=== PATIENT | male | born 1945 | race Caucasian/White ===

== ENCOUNTER → 2016-04-24 | Outpatient (CLI) | payer MEDICARE, BC ==
[~2016-04-24] MED LIST: ABILIFY5 MG PO; ALLERGY RELIEF10 M1 PO; CLONAZEPAM0.5 MG PO; COMPAZINE RC; COMPAZINE10 MG PO; CYMBALTA; FINASTERIDE5 MG PO; FLOMAX0.4 MG PO; GABAPENTIN400 M1 PO; IBUPROFEN200 MG PO; IMITREX NA20 MG/SPRA NS; IMITREX25 MG PO; LAMICTAL; LAMOTRIGINE200 MG PO; LIDODERM 5% PATC1 EA TP; LIDODERM PATCH TP; LUMIGAN 3 ML3 ML OP; LUMIGAN EYE GTTS OU; MIDRIN; MIRTAZAPINE45 M1 PO; MULTIPLE VITAMI1 CAP PO; PERCOCET 325 MG1 TA2 PO; PROSCAR; REMERON45 MG PO; SKELAXIN800 MG PO; VITAMIN D1000 IU PO; VOLTAREN GEL1% TP; ZOCOR 40MG40 MG PO; ZOCOR40 MG PO
== END ==
LOC: COL.RAD 08:07
DX: I77.819 Aortic ectasia, unspecified site (principal); I70.0 Atherosclerosis of aorta; Z87.891 Personal history of nicotine dependence; Z82.49 Family history of ischemic heart disease and other diseases of the circulatory system

== ENCOUNTER → 2018-02-11 | Outpatient (CLI) | payer MEDICARE, BC ==
[~2018-02-11] MED LIST changes: +ASPIRIN 81M81 MG/TA2 PO; +BREO IH; +DULCOLAX TAB5 MG PO; +EFFEXOR-XR150 MG PO; +FENTANYL 12MCG TD; +FLOMAX 0.40.4 MG/CAP PO; +IBU600 MG PO; +KLONOPIN 0.5MG0.5 MG PO; +LAMICTAL200 MG PO; +MIRAPEX0.5 MG PO; +MULTI VITAMINS1 TAB PO; +PERC2.5TAB PO; +PROAIR HFA0.09 MG/AC IH; +SPIRIVA RE2.5 MCG/Ac IH; +XALATAN EYE DROPS OU; +ZANTAC 150MG T150 MG PO; +ZESTRIL30 MG PO
== END ==
LOC: COL.RAD 08:06
DX: G20 Parkinson's disease (principal)

== ENCOUNTER → 2018-03-30 | Outpatient (CLI) | payer MEDICARE, BC ==
[~2018-03-30] MED LIST changes: +ARICEPT 5MG PO; +LINZESS72 MCG PO
== END ==
LOC: COL.PUL 10:00
DX: R06.02 Shortness of breath (principal); Z87.891 Personal history of nicotine dependence
CPT/HCPCS: J7674

== ENCOUNTER 2018-04-01 08:15 | Outpatient (RCR) | payer MEDICARE, BC | END 2018-04-07 10:19 | disposition home or self-care (01) | LOC: WSST 08:15 | DX: R13.10 Dysphagia, unspecified (principal); G20 Parkinson's disease | CPT/HCPCS: G8996-GN; G8997-GN; G8998-GN; G9165-GN; G9166-GN; G9167-GN ==

== ENCOUNTER 2018-09-12 11:11 | Emergency (ER) | payer MEDICARE, BC ==
[~2018-09-12] VITALS: Ht 177.8 cm; Wt 74.5 kg
[2018-09-12 11:23] VITALS: BP 124/66; TEMP 97.3
[2018-09-12 13:11] VITALS: PULSE 78
== END 2018-09-12 13:12 | disposition home or self-care (01) ==
LOC: COL.ER 11:11
DX: L03.012 Cellulitis of left finger (principal); I10 Essential (primary) hypertension; F32.9 Major depressive disorder, single episode, unspecified; F41.9 Anxiety disorder, unspecified; F03.90 Unspecified dementia, unspecified severity, without behavioral disturbance, psychotic disturbance, mood disturbance, and anxiety; G20 Parkinson's disease; Z79.82 Long term (current) use of aspirin; Z79.51 Long term (current) use of inhaled steroids
CPT/HCPCS: J0696

== ENCOUNTER → 2018-12-21 | Outpatient (CLI) | payer MEDICARE, BC | LOC: COL.RAD 07:33 | DX: Z01.812 Encounter for preprocedural laboratory examination (principal); R93.2 Abnormal findings on diagnostic imaging of liver and biliary tract | CPT/HCPCS: Q9967 ==

== ENCOUNTER → 2020-01-03 | Outpatient (CLI) | payer MEDICARE, BC ==
[~2020-01-03] MED LIST changes: +CEPHALEXIN500 M1 PO; +NAMENDA 10MG TA10 MG PO; +NEURONTIN300 MG/CAP PO; +NORCO 325 MG-51 TAB PO
== END ==
LOC: COL.RAD 10:00
DX: G20 Parkinson's disease (principal)

== ENCOUNTER 2020-11-12 08:05 | Emergency (ER) | payer MEDICARE, BC ==
[~2020-11-12] VITALS: Ht 180.3 cm; Wt 87.7 kg
[2020-11-12 08:11] VITALS: TEMP 98.1
[2020-11-12] MEDS ORDERED: CEPHALEXIN500 M1 PO (10:23)
[2020-11-12 10:45] VITALS: BP 130/80; PULSE 80
== END 2020-11-12 10:45 | disposition home or self-care (01) ==
LOC: COL.ER 08:05
DX: S61.412A Laceration without foreign body of left hand, initial encounter (principal); I10 Essential (primary) hypertension; Z87.891 Personal history of nicotine dependence; Z79.899 Other long term (current) drug therapy; W27.2XXA Contact with scissors, initial encounter; Y92.007 Garden or yard of unspecified non-institutional (private) residence as the place of occurrence of the external cause

== ENCOUNTER 2021-10-31 08:15 | Outpatient (RCR) | payer MEDICARE, BC | END 2021-11-10 | disposition home or self-care (01) | LOC: WSST | DX: G31.84 Mild cognitive impairment of uncertain or unknown etiology (principal) ==

== ENCOUNTER 2021-11-25 08:45 | Outpatient (RCR) | payer MEDICARE, BC | END 2021-12-11 | disposition home or self-care (01) | LOC: WSST | DX: G31.84 Mild cognitive impairment of uncertain or unknown etiology (principal); G20 Parkinson's disease ==